=== PATIENT | male | born 1970 | race Caucasian/White ===

== ENCOUNTER 2017-10-23 18:24 | Emergency (ER) | payer BC ==
[2017-10-23] MEDS ORDERED: KETOROLAC 30 MG/ML VIAL IM ONE (18:47)
[2017-10-23] MEDS ORDERED: ORPHENADRINE CITRATE 60MG/2ML VIAL IM ONE (18:47)
--- NOTE | 2017-10-23 18:47 | Emergency Department Record ---
History of Present Illness - General Chief Complaint: Back Pain/Injury Stated Complaint: LOWER BACK PAIN Time Seen by Provider: 10/23/17 18:35 Source: Patient Mode of Arrival: Wheelchair Limitations: No limitations - History of Present Illness Initial Comments: The patient is here due to Low back pain for one day. 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 The pain came on mildly and has slowly worsened. The patient states it feels like his lower back is tightening up. The pain is much worse with any bending, walking, or straightening up. There is no pain radiating down the legs and no leg numbness, weakness, or any bowel or bladder issues. The patient states this is a chronic problem for him and it occurs a couple times a year. He has had to come to the ER in the past for it. MD Complaint: Back pain Onset/Timin -: Days(s) Similar Symptoms Previously: Yes Place: Home Severity scale (1-10): 7 Quality: Aching Consistency: Constant Improves With: None Worsens With: Other Context: Bending Associated Symptoms: Denies other symptoms - Related Data Home Medications Medication Instructions Recorded Confirmed Last Taken Simvastatin [Simvastatin] 20 mg PO DAILY 10/23/17 10/23/17 Unknown Allergies Allergy/AdvReac Type Severity Reaction Status Date / Time No Known Drug Allergies Allergy Unverified 12/03/16 09:50 Travel Screening - Travel/Exposure Within Last 30 Days Have you traveled within the last 30 days?: No Review of Systems Constitutional: Denies: Chills, Fever Eyes: Denies: Eye discharge ENT: Denies: Congestion Respiratory: Denies: Cough, Dyspnea Past Medical History - SOCIAL HISTORY Smoking Status: Current some day smoker Alcohol Use: Occasional Drug Use: None - RESPIRATORY Hx Respiratory Disorders: No - CARDIOVASCULAR Hx Cardio Disorders: No - NEURO Hx Neuro Disorders: No - GI Hx GI Disorders: No - Hx Genitourinary Disorders: No - ENDOCRINE Hx Endocrine Disorders: No - MUSCULOSKELETAL Hx Musculoskeletal Disorders: Yes - PSYCH Hx Psych Problems: Yes Hx Anxiety: Yes Hx Depression: Yes - HEMATOLOGY/ONCOLOGY Hx Hematology/Oncology Disorders: No Family Medical History Any Significant Family History?: No Physical Exam - General General Appearance: Alert, Oriented x3, Cooperative, No acute distress - Head Head exam: Atraumatic, Normocephalic, Normal inspection - Eye Eye exam: Normal appearance, PERRL - Neck Neck exam: Normal inspection, Full ROM. negative: Tenderness - Respiratory Respiratory exam: Normal lung sounds bilaterally. negative: Respiratory distress - Cardiovascular Cardiovascular Exam: Regular rate, Normal rhythm, Normal heart sounds - GI/Abdominal GI/Abdominal exam: Soft, Normal bowel sounds. negative: Tenderness - Extremities Extremities exam: Normal inspection, Full ROM, Normal capillary refill, Other ( Neg SLR bilaterally.). negative: Tenderness - Back Back exam: Reports: Normal inspection, Full ROM. Denies: Muscle spasm, Paraspinal tenderness, Rash noted, Tenderness, Vertebral tenderness - Neurological Neurological exam: Alert, Oriented X3, Reflexes normal. negative: Altered, Motor sensory deficit (The motor and sensory exams are 5/5 and equal bilaterally in all muscle groups.) - Skin Skin exam: negative: Rash Course Vital Signs 10/23/17 18:28 Temperature 98.4 F Pulse Rate 63 Respiratory 20 Rate Blood Pressure 135/58 Pulse Ox 95 - Reevaluation(s) Reevaluation #1: The patient is resting comfortably at this time. He has not received his pain medicines yet and has not gone for xray. His care will be turned over to Dr. Hendrix at 19:00 due to shift change. 10/23/17 18:51 Disposition Forms: Patient Portal Access Quality - Quality Measures Quality Measures: N/A - Blood Pressure Screening View Details: Yes Does Patient Have Any of the Following: No Blood Pressure Classification: Pre-Hypertensive BP Reading Systolic Measurement: 135 Diastolic Measurement: 58 Screening for High Blood Pressure: < Pre-Hypertensive BP, F/U Documented > [ G8950] Pre-Hypertensive Follow-up Interventions: Referral to alternative/primary care provider.
--- NOTE | 2017-10-23 20:06 | Emergency Department Record ---
History of Present Illness - General Chief Complaint: Back Pain/Injury Stated Complaint: LOWER BACK PAIN Time Seen by Provider: 10/23/17 18:35 Source: Patient Limitations: No limitations - History of Present Illness Onset/Timin -: Days(s) Similar Symptoms Previously: Yes Place: Home Severity scale (1-10): 7 Quality: Aching Consistency: Constant Improves With: None Worsens With: Other Context: Bending Associated Symptoms: Denies other symptoms - Related Data Home Medications Medication Instructions Recorded Confirmed Last Taken Simvastatin [Simvastatin] 20 mg PO DAILY 10/23/17 10/23/17 Unknown Previous Rx's Medication Instructions Recorded Cyclobenzaprine HCl [Flexeril] 10 mg PO TID #14 tablet 10/23/17 Hydrocodone/Acetaminophen [[place] 1 each PO Q6HR #7 tablet 10/23/17 5-325 Tablet] Ibuprofen [Motrin 600Mg] 600 mg PO Q6H #20 tablet 10/23/17 Allergies Allergy/AdvReac Type Severity Reaction Status Date / Time No Known Drug Allergies Allergy Unverified 12/03/16 09:50 Travel Screening - Travel/Exposure Within Last 30 Days Have you traveled within the last 30 days?: No Review of Systems Constitutional: Denies: Chills, Fever Eyes: Denies: Eye discharge ENT: Denies: Congestion Respiratory: Denies: Cough, Dyspnea Past Medical History - SOCIAL HISTORY Smoking Status: Current some day smoker Alcohol Use: Occasional Drug Use: None - RESPIRATORY Hx Respiratory Disorders: No - CARDIOVASCULAR Hx Cardio Disorders: No - NEURO Hx Neuro Disorders: No - GI Hx GI Disorders: No - Hx Genitourinary Disorders: No - ENDOCRINE Hx Endocrine Disorders: No - MUSCULOSKELETAL Hx Musculoskeletal Disorders: Yes - PSYCH Hx Psych Problems: Yes Hx Anxiety: Yes Hx Depression: Yes - HEMATOLOGY/ONCOLOGY Hx Hematology/Oncology Disorders: No Family Medical History Any Significant Family History?: No Physical Exam - General Limitations: No limitations Course Vital Signs 10/23/17 10/23/17 18:28 19:35 Temperature 98.4 F 97.6 F Pulse Rate 63 Pulse Rate [ 57 L Pulse Ox Probe] Respiratory 20 20 Rate Blood Pressure 135/58 Blood Pressure 125/75 [Left Arm] Pulse Ox 95 96 - Reevaluation(s) Reevaluation #1: 10/23/17 20:01 pt feels better Disposition Disposition: Discharge Clinical Impression: Lumbar strain Qualifiers: Encounter type: initial encounter Qualified Code(s): S39.012A - Strain of muscle, fascia and tendon of lower back, initial encounter DJD (degenerative joint disease) Qualifiers: Osteoarthritis location: spine Spinal region: lumbar Spinal osteoarthritis complication: without myelopathy or radiculopathy Qualified Code(s): M47.816 - Spondylosis without myelopathy or radiculopathy, lumbar region Disposition: Home, Self-Care Condition: (1) Good Instructions: Low Back Strain (ED), Arthritis (ED) Additional Instructions: follow up with family doctor. return sooner if worse. no lifting more then 5 lbs for 5 days. Prescriptions: Hydrocodone/Acetaminophen [[place] 5-325 Tablet] 1 each PO Q6HR #7 tablet Cyclobenzaprine HCl [Flexeril] 10 mg PO TID #14 tablet Ibuprofen [Motrin 600Mg] 600 mg PO Q6H #20 tablet Forms: Patient Portal Access Quality - Quality Measures Quality Measures: N/A - Blood Pressure Screening Does Patient Have Any of the Following: No Blood Pressure Classification: Pre-Hypertensive BP Reading Systolic Measurement: 135 Diastolic Measurement: 58 Screening for High Blood Pressure: < Pre-Hypertensive BP, F/U Documented > [ G8950] Pre-Hypertensive Follow-up Interventions: Follow-up with rescreen every year.
--- NOTE | 2017-10-25 18:56 | RADIOLOGY REPORT ---
EXAM: LUMBAR SPINE W/OBLIQUES HISTORY: PATIENT HAS LOW BACK PAIN. TECHNIQUE: Five views of the lumbar spine are provided without comparison examinations. FINDINGS: The vertebral body height, contour, AP alignment of the lumbar spine is within normal limits. Moderate to advanced disc space height loss and endplate sclerosis is noted at the T12-L1 disc space level. Prominent anterior vertebral body osteophytes are identified. There is no radiographic evidence of a fracture or dislocation of the lumbar spine. Bilateral pedicles, posterior spinous processes, transverse processes are within normal limits. IMPRESSION: DEGENERATIVE DISC DISEASE OF THE LUMBAR SPINE IS NOTED WITHOUT RADIOGRAPHIC EVIDENCE OF AN ACUTE PROCESS INVOLVING THE LUMBAR SPINE. JOB NUMBER: [id number] MTDD
== END 2017-10-23 20:45 | disposition home or self-care (01) ==
LOC: ER 18:24
DX: S39.012A Strain of muscle, fascia and tendon of lower back, initial encounter (principal); M47.816 Spondylosis without myelopathy or radiculopathy, lumbar region; X50.1XXA Overexertion from prolonged static or awkward postures, initial encounter; Y93.F1 Activity, caregiving, bathing; Y92.002 Bathroom of unspecified non-institutional (private) residence as the place of occurrence of the external cause
CPT/HCPCS: 99283; 96372; 99284; 72110; J1885; J2360

== ENCOUNTER 2019-12-13 13:37 | Emergency (ER) | payer BC ==
[2019-12-13] MEDS ORDERED: 0.9 % SODIUM CHLORIDE 1,000 ML BAG IV ONE ×2 (14:01→15:32)
[2019-12-13] MEDS ORDERED: ONDANSETRON HCL IV 4 MG/2 ML VIAL IVP ONE (14:01)
[2019-12-13] MEDS ORDERED: MORPHINE SULFATE 5 MG/ML VIAL IVP ONE ×2 (14:01→15:00)
--- NOTE | 2019-12-13 14:07 | Emergency Department Record ---
History of Present Illness - General Chief complaint: Vomiting Stated complaint: VOMITING AND ABD PAIN Time Seen by Provider: 12/13/19 13:55 Source: Patient Mode of Arrival: Ambulatory Limitations: No limitations - History of Present Illness Initial comments: 48 yo male presents with left sided abdominal pain, nausea and vomiting. The [place] of the [place] He [place] he [place] home that same day. The pain is lateral to the umbilicus. No rash. The pain is constant at this point. He began to vomit late Thursday or early Thursday. No blood in the vomit. No cough, chest pain or shortness of breath. No blood in the stools. No history of abdominal surgery or colonoscopy. He has not had any appetite since the onset. He urine is dark and "smells". He has had prior similar episodes in the past that usually only last 1-[address] Nathan Minor is his PCP. MD complaint: Abdominal pain, Nausea, Vomiting Onset/Timin -: Days(s) Description of Vomiting: Watery Associated Abdominal Pain: Yes Location: Diffuse Radiation: Other (left lateral abdomen) Severity: Moderate Severity scale (1-10): 8 Quality: Aching Consistency: Constant Improves with: None Worsens with: None Context: Other Associated Symptoms: Denies other symptoms - Related Data Previous Rx's Medication Instructions Recorded Ibuprofen [Motrin 600Mg] 600 mg PO Q6H #20 tablet 10/23/17 Hydrocodone/Acetaminophen [[place] 1 each PO Q6H #8 tablet 12/13/19 5-325 Tablet] Ondansetron [Zofran Odt] 4 mg PO Q8H #15 tab.rapdis 12/13/19 Allergies Allergy/AdvReac Type Severity Reaction Status Date / Time No Known Drug Allergies Allergy Verified 12/13/19 13:43 Travel Screening - Travel/Exposure Within Last 30 Days Have you traveled within the last 30 days?: Yes Location Detail:: [place], [place], [place], [place], - Travel/Exposure Within Last Year Have you traveled outside the [place] 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 Denies: Chills, Fever Eyes: Denies: Eye discharge ENT: Denies: Congestion, Ear pain, Epistaxis, Throat pain Respiratory: Denies: Cough, Dyspnea, Hemoptysis, Wheezes Cardiovascular: Denies: Chest pain, Edema, Syncope Endocrine: Denies: Fatigue, Polydipsia, Polyuria Gastrointestinal: Reports: As per HPI, Abdominal pain, Nausea, Vomiting. Denies: Constipation, Diarrhea, Hematemesis, Hematochezia, Melena Genitourinary: Denies: Dysuria, Frequency, Hematuria Musculoskeletal: Reports: Back pain (chronic). Denies: Arthralgia, Gout, Myalgia Skin: Denies: Bruising, Change in color, Rash Neurological: Denies: Headache, Weakness Psychiatric: Denies: Anxiety Hematological/Lymphatic: Denies: Easy bleeding, Easy bruising Past Medical History - SOCIAL HISTORY Smoking Status: Current some day smoker Alcohol Use: None Drug Use: None - RESPIRATORY Hx Respiratory Disorders: No - CARDIOVASCULAR Hx Cardio Disorders: No - NEURO Hx Neuro Disorders: No - GI Hx GI Disorders: No - Hx Genitourinary Disorders: No - ENDOCRINE Hx Endocrine Disorders: No - MUSCULOSKELETAL Hx Musculoskeletal Disorders: Yes - PSYCH Hx Psych Problems: Yes Hx Anxiety: Yes Hx Depression: Yes - HEMATOLOGY/ONCOLOGY Hx Hematology/Oncology Disorders: No Family Medical History Any Significant Family History?: No Physical Exam - General General Appearance: Alert, Oriented x3, Cooperative, No acute distress Limitations: No limitations - Head Head exam: Atraumatic, Normocephalic, Normal inspection - Eye Eye exam: Normal appearance, PERRL. negative: Conjunctival injection, Scleral icterus - ENT ENT exam: Normal exam, Mucous membranes moist Ear exam: Normal external inspection Nasal Exam: Normal inspection Mouth exam: Normal external inspection - Neck Neck exam: Normal inspection - Respiratory Respiratory exam: Normal lung sounds bilaterally. negative: Accessory muscle use, Decreased breath sounds, Prolonged expiratory, Respiratory distress, Rhonchi, Stridor, Wheezes - Cardiovascular Cardiovascular Exam: Regular rate, Normal rhythm, Normal heart sounds - GI/Abdominal GI/Abdominal exam: Soft, Normal bowel sounds, Hernia (umbilica), Tenderness, Other (Obese but very soft abdomen. Small umbilical soft non tender hernia, Tender left lateral abdomen, no rash, The remaining abdomen is very soft and not tender). negative: Diminished bowel sounds, Distended, Guarding, Mass, Pulsatile mass (limited due to habitus), Rebound, Rigid - Rectal Rectal exam: Deferred - exam: Deferred - Extremities Extremities exam: Normal inspection Image of Full Body: 1 - tenderness, no mass or swelling, no rash, soft abdomen, no rebound or guarding - Back Back exam: Reports: CVA tenderness (L). Denies: CVA tenderness (R) - Neurological Neurological exam: Alert, Oriented X3 - Psychiatric Psychiatric exam: Normal affect, Normal mood - Skin Skin exam: Dry, Intact, Normal color, Warm Course Vital Signs 12/13/19 13:46 Temperature 98.1 F Pulse Rate 80 Respiratory 24 Rate Blood Pressure 163/95 Pulse Ox 97 - Reevaluation(s) Reevaluation #1: 12/13/19 14:37 The labs results were reviewed There are no acute significant abnormalities of the CBC There are no acute significant abnormalities of the CMP The Lipase is normal 12/13/19 15:01 On recheck the patient still has left lateral abdominal pain. He points to the same spot lateral to the umbilicus. 12/13/19 15:[address] scan of the abdomen was reviewed. No acute process visible on the ED The work up to this point has been negative for a cause for his left side abdominal pain He has yet to give a UA. No fever, normal labs, and normal CT scan No vomiting in the ED 12/13/19 16:07 Waiting for UA. Patient aware. 12/13/19 16:43 The Influenza are negative The UA is negative for infection 12/13/19 17:15 I recommend a 12-24 hour recheck in the ED given his negative work up but continued pain We discussed home care and reasons for immediate return to the ED Medical Decision Making - Lab Data Result diagrams: 12/13/19 14:07 12/13/19 14:07 Disposition Disposition: Discharge Clinical Impression: Abdominal pain Qualifiers: Abdominal location: unspecified location Qualified Code(s): R10.9 - Unspecified abdominal pain Disposition: Home, Self-Care Condition: (1) Good Instructions: Acute Nausea and Vomiting (ED), Abdominal Pain (ED) Additional Instructions: Review this ER visit and the tests performed with your family doctor this week Return to the ER in the next 12-24 hours if you are not significantly better Return to the ER for a recheck immediately if worse, vomiting, uncontrolled pain, or any new concerns or questions Take the prescriptions provided as directed Prescriptions: Hydrocodone/Acetaminophen [[place] 5-325 Tablet] 1 each PO Q6H #8 tablet Ondansetron [Zofran Odt] 4 mg PO Q8H #15 tab.rapdis Forms: Patient Portal Access Time of Disposition: 17:21 Quality - Quality Measures Quality Measures: N/A - Blood Pressure Screening Does Patient Have Any of the Following: No Blood Pressure Classification: Hypertensive Reading Systolic Measurement: 163 Diastolic Measurement: 95 Screening for High Blood Pressure: < Pre-Hypertensive BP, F/U Documented > [G8950] Pre-Hypertensive Follow-up Interventions: Referral to alternative/primary care provider.
[2019-12-13 14:16] LABS: HEMATOCRIT 48.5 % (42.0-52.0); HEMOGLOBIN 16.9 gm/dl (14.0-18.0); MEAN CELL VOLUME 83.5 fl (81-97); MEAN CORPUSCULAR HGB CONC 34.8 g/dl (32-36); MEAN PLATELET VOLUME 11.4 fl (7.4-10.4); PLATELET COUNT 234 K/uL (130-400); RED BLOOD COUNT 5.81 M/uL (4.40-5.70); RED CELL DISTRIBUTION WIDTH 12.7 % (11.5-14.5); WHITE BLOOD COUNT W/O DIFF 9.5 K/uL (4.2-12.2)
[2019-12-13 14:26] LABS: BLOOD UREA NITROGEN 17 mg/dL (6-20); CREATININE 0.9 mg/dL (0.7-1.2); EST GLOMERULAR FILTRATION RATE > 60 mL/min
[2019-12-13 14:27] LABS: LIPASE 50 U/L (13-60); TOTAL PROTEIN 7.9 g/dL (6.6-8.7)
[2019-12-13 14:29] LABS: GLUCOSE,RANDOM 137 mg/dL (74-109)
[2019-12-13 14:32] LABS: ALB/GLOB RATIO 1.6 (1.1-1.8); ALBUMIN 4.9 g/dL (4.0-5.0); ALKALINE PHOSPHATASE 78 U/L (40-129); ALT/SGPT 30 U/L (<41); AST/SGOT 19 U/L (10.0-50.0)
[2019-12-13 14:49] LABS: ABSOLUTE NEUTROPHIL COUNT 5.81
--- NOTE | 2019-12-13 15:31 | CT SCAN REPORT ---
EXAMINATION: CT Abdomen and Pelvis with Contrast EXAM DATE: 12/13/2019 3:00 PM TECHNIQUE: Spiral CT images were obtained from the lung bases to the ischial tuberosities after inje ction of intravenous contrast. Coronal and sagittal 2-D reconstructions were made from source images . IV Contrast: The type and amount of contrast are recorded in the medical record. INDICATION: left sided abdominal pain LLQ PAIN W/ VOMITING X 4 DAYS. COMPARISON: None. FINDINGS: Abdomen: The liver, spleen, pancreas, adrenals, and kidneys are normal. There are mildly prominent retroperito kenny lymph nodes, with no definite pathologically enlarged nodes. No free fluid or free air. Subopti mal evaluation of bowel due to nondistention and lack of oral contrast. No bowel dilation. Pelvis: The pelvic organs are unremarkable. No free fluid or free air. No inflammatory change. The appendix i s normal. IMPRESSION: 1. Negative. Dictated by: Dalton Calixto MD on 12/13/2019 3:25 PM. .
[2019-12-13 16:19] LABS: INFLUENZA A NEGATIVE (NEGATIVE); INFLUENZA B NEGATIVE (NEGATIVE)
[2019-12-13] MEDS ORDERED: MAGNESIUM HYDROXIDE/AL HYDROX 30 ML, LIDOCAINE VISC 2% 15ML 15 ML PO ONE ×2 (16:22)
[2019-12-13 16:40] LABS: URINE APPEARANCE CLEAR; URINE BILIRUBIN NEGATIVE (NEGATIVE); URINE BLOOD NEGATIVE (NEGATIVE); URINE COLOR YELLOW; URINE GLUCOSE (UA) NEGATIVE (NEGATIVE); URINE KETONE NEGATIVE (NEGATIVE); URINE LEUKOCYTE ESTERASE NEGATIVE (NEGATIVE); URINE NITRITE NEGATIVE (NEGATIVE); URINE PROTEIN TRACE (NEGATIVE)
== END 2019-12-13 18:06 | disposition home or self-care (01) ==
LOC: ER 13:37
DX: R10.33 Periumbilical pain (principal); R11.2 Nausea with vomiting, unspecified; F17.210 Nicotine dependence, cigarettes, uncomplicated
CPT/HCPCS: 99284 ×2; 96376; 96374; 96375; 83690; 80053; 81003; 87400; 85027; 74177; Q9967; J2405; J7030

== ENCOUNTER 2019-12-15 10:57 | Observation (INO) | payer BC ==
[2019-12-15] MEDS ORDERED: 0.9 % SODIUM CHLORIDE 1,000 ML BAG IV ONE (11:13)
[2019-12-15] MEDS ORDERED: ONDANSETRON HCL IV 4 MG/2 ML VIAL IV ONE (11:13)
[2019-12-15] MEDS ORDERED: ACETAMINOPHEN 1,000 MG/100 ML BTL IVPB ONE (11:14)
--- NOTE | 2019-12-15 11:19 | Emergency Department Record ---
History of Present Illness - General Chief complaint: Nausea, Vomiting, Diarrhea Stated complaint: NAUSEA/WEAKNESS Time Seen by Provider: 12/15/19 11:09 Source: Patient Mode of Arrival: Ambulatory Limitations: No limitations - History of Present Illness Initial comments: The patient is here due to a hx of intermittent nausea with vomiting and abdominal cramping over the last 5 days. He got worse 2 days ago and was here in the ER for it. At that time he did receive IVF and did have a normal workup including and abdominal CT with IV contrast. The patient was better yesterday and then today developed a return of the nausea with vomiting and abdominal cramping. He also did have some palpitations today and a MONTE but that is improving. MD complaint: Nausea, Vomiting Onset/Timin -: Days(s) Description of Vomiting: Watery Associated Abdominal Pain: Yes Location: Diffuse Severity: Moderate Severity scale (1-10): 7 Quality: Aching, Cramping - Related Data Previous Rx's Medication Instructions Recorded Ondansetron [Zofran Odt] 4 mg PO Q8H #15 tab.rapdis 12/13/19 Allergies Allergy/AdvReac Type Severity Reaction Status Date / Time No Known Drug Allergies Allergy Verified 12/15/19 11:08 Travel Screening - Travel/Exposure Within Last 30 Days Have you traveled within the last 30 days?: No - Travel/Exposure Within Last Year Have you traveled outside the [place] in the last year?: No - Additonal Travel Details Have you been exposed to anyone with a communicable illness?: No - Travel Symptoms Symptom Screening: None Review of Systems Constitutional: Reports: Malaise. Denies: Chills, Fever Eyes: Denies: Eye discharge ENT: Denies: Congestion Respiratory: Denies: Cough, Dyspnea Cardiovascular: Reports: Palpitations. Denies: Chest pain Endocrine: Reports: Fatigue Gastrointestinal: Reports: Nausea, Vomiting Genitourinary: Denies: Dysuria Musculoskeletal: Denies: Arthralgia Skin: Denies: Bruising Past Medical History - SOCIAL HISTORY Smoking Status: Current some day smoker Alcohol Use: None Drug Use: None - RESPIRATORY Hx Respiratory Disorders: No - CARDIOVASCULAR Hx Cardio Disorders: No - NEURO Hx Neuro Disorders: No - GI Hx GI Disorders: No - Hx Genitourinary Disorders: No - ENDOCRINE Hx Endocrine Disorders: No - MUSCULOSKELETAL Hx Musculoskeletal Disorders: Yes Comment:: sciatic - PSYCH Hx Psych Problems: Yes Hx Anxiety: Yes Hx Depression: Yes - HEMATOLOGY/ONCOLOGY Hx Hematology/Oncology Disorders: No Family Medical History Any Significant Family History?: Yes Physical Exam - General General Appearance: Alert, Oriented x3, Cooperative, No acute distress - Head Head exam: Atraumatic, Normocephalic, Normal inspection - Eye Eye exam: Normal appearance, PERRL - ENT Throat exam: Normal inspection. negative: Tonsillar erythema, Tonsillar exudate - Neck Neck exam: Normal inspection, Full ROM. negative: Tenderness - Respiratory Respiratory exam: Normal lung sounds bilaterally. negative: Respiratory distress - Cardiovascular Cardiovascular Exam: Regular rate, Normal rhythm, Normal heart sounds - GI/Abdominal GI/Abdominal exam: Soft, Normal bowel sounds, Tenderness (There is mild L sided abdominal tenderness.). negative: Distended, Guarding, Rebound - Extremities Extremities exam: Normal inspection, Full ROM, Normal capillary refill. negative: Tenderness - Back Back exam: Reports: Normal inspection - Neurological Neurological exam: Alert, Normal gait, Oriented X3, Other (Neg Drift and Rhomberg exams.). negative: Abnormal gait, Altered, Motor sensory deficit - Psychiatric Psychiatric exam: negative: Anxious - Skin Skin exam: Pallor (mild.) Course Vital Signs 12/15/19 11:01 Temperature 98.1 F Pulse Rate 57 L Respiratory 18 Rate Blood Pressure 181/95 Pulse Ox 100 - Reevaluation(s) Reevaluation #1: The patient is still nauseated and vomiting. He denies any MONTE, neck pain, CP or SOB. The patient is having mild abdominal pain which he describes as an aching nauseated feeling. I did discuss with him that his tests are all normal at this time. 12/15/19 12:19 Reevaluation #2: The patient is still quite nauseated and intermittently vomiting. He denies any MONTE, CP, SOB or AP but is cramping all over at times. Due to the persistent vomiting I did recommend a short stay admission and the patient does agree. I also did discuss the case with Dr. Kapadia and he does accept the patient. 12/15/19 13:59 Medical Decision Making - Data Complexity MDM Data: Labs Ordered and/or Reviewed, EKG Ordered and/or Reviewed - Lab Data Result diagrams: 12/15/19 11:15 12/15/19 11:15 - EKG Data -: EKG Interpreted by Me EKG: No Acute Changes (Flipped T wave Lead III only.), Normal EKG Disposition Disposition: Admit Clinical Impression: Nausea and vomiting Qualifiers: Vomiting type: unspecified Vomiting Intractability: unspecified Qualified Code(s): R11.2 - Nausea with vomiting, unspecified Disposition: Still a Patient at [facility] Decision to Admit: Admit from ER Decision to Admit Date: 12/15/19 Decision to Admit Time: 14:00 Accepting Physician: Kang Time Discussed w/Accepting Physician: 14:01 Condition: (2) Stable Instructions: Acute Nausea and Vomiting (ED) Forms: Patient Portal Access Time of Disposition: 14:00 Quality - Quality Measures Quality Measures: N/A - Blood Pressure Screening View Details: Yes Does Patient Have Any of the Following: No Blood Pressure Classification: Hypertensive Reading Systolic Measurement: 181 Diastolic Measurement: 95 Screening for High Blood Pressure: < First Hypertensive BP, F/U Documented > [G8950] First Hypertensive Follow-up Interventions: Referral to alternative/primary care provider.
[2019-12-15 11:26] LABS: ABSOLUTE NEUTROPHIL COUNT 6.93; BASO % 0.3 % (0-6); EOS % 0.1 % (0-6); GRAN % 78.5 % (47-80); HEMATOCRIT 48.2 % (42.0-52.0); LYMPH % 14.8 % (16-45); MEAN CELL VOLUME 82.8 fl (81-97); MEAN CORPUSCULAR HEMOGLOBIN 29.2 pg (27-33); MEAN CORPUSCULAR HGB CONC 35.3 g/dl (32-36); MEAN PLATELET VOLUME 11.3 fl (7.4-10.4); MONO % 6.3 % (0-9); PLATELET COUNT 243 K/uL (130-400); RED BLOOD COUNT 5.82 M/uL (4.40-5.70); RED CELL DISTRIBUTION WIDTH 12.4 % (11.5-14.5); WHITE BLOOD COUNT W/O DIFF 8.8 K/uL (4.2-12.2)
--- NOTE | 2019-12-15 11:26 | Emergency Department Record ---
History of Present Illness - General Chief complaint: Nausea, Vomiting, Diarrhea Stated complaint: NAUSEA/WEAKNESS Time Seen by Provider: 12/15/19 11:09 Source: Patient Mode of Arrival: Ambulatory Limitations: No limitations - History of Present Illness MD complaint: Nausea, Vomiting Onset/Timin -: Days(s) Description of Vomiting: Watery Associated Abdominal Pain: Yes Location: Diffuse Severity: Moderate Severity scale (1-10): 7 Quality: Aching, Cramping - Related Data Previous Rx's Medication Instructions Recorded Ondansetron [Zofran Odt] 4 mg PO Q8H #15 tab.rapdis 12/13/19 Allergies Allergy/AdvReac Type Severity Reaction Status Date / Time No Known Drug Allergies Allergy Verified 12/15/19 11:08 Travel Screening - Travel/Exposure Within Last 30 Days Have you traveled within the last 30 days?: No - Travel/Exposure Within Last Year Have you traveled outside the [place] in the last year?: No - Additonal Travel Details Have you been exposed to anyone with a communicable illness?: No - Travel Symptoms Symptom Screening: None Past Medical History - SOCIAL HISTORY Smoking Status: Current some day smoker Alcohol Use: None Drug Use: None - RESPIRATORY Hx Respiratory Disorders: No - CARDIOVASCULAR Hx Cardio Disorders: No - NEURO Hx Neuro Disorders: No - GI Hx GI Disorders: No - Hx Genitourinary Disorders: No - ENDOCRINE Hx Endocrine Disorders: No - MUSCULOSKELETAL Hx Musculoskeletal Disorders: Yes Comment:: sciatic - PSYCH Hx Psych Problems: Yes Hx Anxiety: Yes Hx Depression: Yes - HEMATOLOGY/ONCOLOGY Hx Hematology/Oncology Disorders: No Family Medical History Any Significant Family History?: Yes Course Vital Signs 12/15/19 11:01 Temperature 98.1 F Pulse Rate 57 L Respiratory 18 Rate Blood Pressure 181/95 Pulse Ox 100 Medical Decision Making - Lab Data Result diagrams: 12/15/19 11:15 12/15/19 11:15 Disposition Forms: Patient Portal Access Quality - Quality Measures Quality Measures: N/A - Blood Pressure Screening View Details: Yes Does Patient Have Any of the Following: Active Dx of HTN Blood Pressure Classification: Hypertensive Reading Systolic Measurement: 181 Diastolic Measurement: 95 Screening for High Blood Pressure: Patient Exclusion, Hx of HTN [[id number]]
[2019-12-15 11:38] LABS: BLOOD UREA NITROGEN 14 mg/dL (6-20); CREATININE 0.9 mg/dL (0.7-1.2); EST GLOMERULAR FILTRATION RATE > 60 mL/min
[2019-12-15 11:39] LABS: LIPASE 65 U/L (13-60)
[2019-12-15 11:40] LABS: GLUCOSE,RANDOM 127 mg/dL (74-109)
[2019-12-15 11:43] LABS: ALBUMIN 4.8 g/dL (4.0-5.0); ALKALINE PHOSPHATASE 80 U/L (40-129); ALT/SGPT 32 U/L (<41); AST/SGOT 22 U/L (10.0-50.0)
[2019-12-15 11:44] LABS: BILIRUBIN,DIRECT < 0.2 mg/dL (0-0.3)
[2019-12-15] MEDS ORDERED: PROMETHAZINE HCL 12.5 MG in 0.9 % SODIUM CHLORIDE 100ML 100 ML IVPB ONE (12:05)
[2019-12-15] MEDS ORDERED: PANTOPRAZOLE SODIUM IV 40 MG VIAL IVP ONE (12:06)
[2019-12-15 12:59] LABS: URINE APPEARANCE CLOUDY; URINE BILIRUBIN NEGATIVE (NEGATIVE); URINE BLOOD NEGATIVE (NEGATIVE); URINE COLOR YELLOW; URINE GLUCOSE (UA) NEGATIVE (NEGATIVE); URINE KETONE 15 mg/dL (NEGATIVE); URINE LEUKOCYTE ESTERASE NEGATIVE (NEGATIVE); URINE NITRITE NEGATIVE (NEGATIVE); URINE PROTEIN NEGATIVE (NEGATIVE)
[2019-12-15] MEDS ORDERED: PROMETHAZINE HCL 12.5 MG in 0.9 % SODIUM CHLORIDE 100ML 100 ML IVPB PRN (15:21)
[2019-12-15] MEDS ORDERED: ONDANSETRON HCL IV 4 MG/2 ML VIAL IVP PRN (15:21)
[2019-12-15] MEDS ORDERED: 0.9 % SODIUM CHLORIDE 1000ML 1,000 ML IV ONE (15:21)
[2019-12-15] MEDS ORDERED: ACETAMINOPHEN 1,000 MG/100 ML BTL IVPB PRN (15:21)
[2019-12-15] MEDS ORDERED: HYDRALAZINE 20MG/ML VIAL IV PRN ×2 (15:23→15:25)
--- NOTE | 2019-12-15 15:36 | History & Physical ---
History of Present Illness - Date of Service Date of Service for History & Physical: 12/15/19 - History of Present Illness Admitting Diagnosis: 1. Intractable Nausea and Vomiting. History of Present Illness: 48 y/o male with 4 days history of nausea, vomiting and abdominal pain. The patient came into the ED yesterday and had 2 liters of normal saline and Zofran which resolved symptoms and he went home feeling better. He was able to eat soft foods and liquids but then symptoms returned this morning around 5 am. The patient's ED workup was unremarkable with normal CBC w/ diff, CMP and UA is negative. The patient will be admitted to observation for IV fluid and management of intractable nausea and vomiting. PCP: Dr. Minor Travel Screening - Travel/Exposure Within Last 30 Days Have you traveled within the last 30 days?: No - Travel/Exposure Within Last Year Have you traveled outside the [place] in the last year?: No - Additonal Travel Details Have you been exposed to anyone with a communicable illness?: No - Travel Symptoms Symptom Screening: None Review of Systems Constitutional: Reports: Malaise. Denies: Chills, Fever Eyes: Denies: Eye discharge ENT: Denies: Congestion Respiratory: Denies: Cough, Dyspnea Cardiovascular: Reports: Palpitations. Denies: Chest pain Endocrine: Reports: Fatigue Gastrointestinal: Reports: Nausea, Vomiting Genitourinary: Denies: Dysuria Musculoskeletal: Denies: Arthralgia Skin: Denies: Bruising Past Medical History - SOCIAL HISTORY Smoking Status: Current some day smoker Alcohol Use: None Drug Use: None - RESPIRATORY Hx Respiratory Disorders: No - CARDIOVASCULAR Hx Cardio Disorders: No - NEURO Hx Neuro Disorders: No - GI Hx GI Disorders: No - Hx Genitourinary Disorders: No - ENDOCRINE Hx Endocrine Disorders: No - MUSCULOSKELETAL Hx Musculoskeletal Disorders: Yes Comment:: sciatic - PSYCH Hx Psych Problems: Yes Hx Anxiety: Yes Hx Depression: Yes - HEMATOLOGY/ONCOLOGY Hx Hematology/Oncology Disorders: No Family Medical History Any Significant Family History?: Yes H&P Meds/Allergies - Allergies Allergies: Allergies Allergy/AdvReac Type Severity Reaction Status Date / Time No Known Drug Allergies Allergy Verified 12/15/19 11:08 - Home Medications Previous Rx's Medication Instructions Recorded Ondansetron [Zofran Odt] 4 mg PO Q8H #15 tab.rapdis 12/13/19 - Active Medications Active Medications: Current Medications Hydralazine HCl (Apresoline) 10 mg IV NOW PRN PRN Reason: BLOOD PRESSURE Hydralazine HCl (Apresoline) 10 mg IV Q4H PRN PRN Reason: BLOOD PRESSURE Sodium Chloride () 1,000 mls @ 100 mls/hr IV .Q10H ONE Stop: 12/16/19 01:20 Promethazine HCl 12.5 mg/ (Sodium Chloride) 100.5 mls @ 200 mls/hr IVPB Q6H PRN PRN Reason: NAUSEA Acetaminophen (Ofirmev) 1,000 mg in 100 mls @ 400 mls/hr IVPB Q6H KUMAR Ondansetron HCl (Zofran) 4 mg IVP Q4H PRN PRN Reason: NAUSEA Pantoprazole Sodium (Protonix Iv) 40 mg IV DAILY KUMAR Physical Exam - Vital Signs Vital Signs: Vital Signs - Last 24 Hrs Temp Pulse Pulse Resp BP BP Pulse Ox 12/15/19 13:26 98.1 F 54 L 20 169/81 98 12/15/19 11:01 98.1 F 57 L 18 181/95 100 - General General Appearance: Alert, Oriented x3, Cooperative, No acute distress Limitations: No limitations - Head Head exam: Atraumatic, Normocephalic, Normal inspection - Eye Eye exam: Normal appearance, PERRL - ENT Throat exam: Normal inspection. negative: Tonsillar erythema, Tonsillar exudate - Neck Neck exam: Normal inspection, Full ROM. negative: Tenderness - Respiratory Respiratory exam: Normal lung sounds bilaterally. negative: Respiratory distress - Cardiovascular Cardiovascular Exam: Regular rate, Normal rhythm, Normal heart sounds Peripheral Pulses: 3+: Radial (R), Radial (L), Dorsalis Pedis (R), Dorsalis Pedis (L) - GI/Abdominal GI/Abdominal exam: Soft, Normal bowel sounds, Tenderness (There is mild L sided abdominal tenderness.). negative: Distended, Guarding, Rebound - Extremities Extremities exam: Normal inspection, Full ROM, Normal capillary refill. negative: Tenderness - Back Back exam: Reports: Normal inspection - Neurological Neurological exam: Alert, Normal gait, Oriented X3, Other (Neg Drift and Rhomberg exams.). negative: Abnormal gait, Altered, Motor sensory deficit - Psychiatric Psychiatric exam: negative: Anxious - Skin Skin exam: Pallor (mild.) Results - Labs Result Diagrams: 12/15/19 11:15 12/15/19 11:15 Labs Last 24 Hours: Laboratory Results - last 24 hr 12/15/19 12/15/19 12/15/19 11:15 11:15 11:15 WBC 8.8 RBC 5.82 H Hgb 17.0 Hct 48.2 MCV 82.8 MCH 29.2 MCHC 35.3 RDW 12.4 Plt Count 243 MPV 11.3 H Gran % 78.5 Lymphocytes % 14.8 L Monocytes % 6.3 Eosinophils % 0.1 Basophils % 0.3 Absolute Neutrophils 6.93 Sodium 142 Potassium 3.7 Chloride 101 Carbon Dioxide 27.0 Anion Gap 14.0 BUN 14 Creatinine 0.9 Estimated GFR > 60 Random Glucose 127 H Lactic Acid 1.5 Calcium 9.7 Total Bilirubin 0.90 Direct Bilirubin < 0.2 AST 22 ALT 32 Alkaline Phosphatase 80 Troponin T Total Protein 8.0 Albumin 4.8 Lipase 65 H Urine Color Urine Appearance Urine pH Ur Specific [place] Urine Protein Urine Glucose (UA) Urine Ketones Urine Blood Urine Nitrite Urine Bilirubin Urine Urobilinogen Ur Leukocyte Esterase 12/15/19 12/15/19 11:15 12:53 WBC RBC Hgb Hct MCV MCH MCHC RDW Plt Count MPV Gran % Lymphocytes % Monocytes % Eosinophils % Basophils % Absolute Neutrophils Sodium Potassium Chloride Carbon Dioxide Anion Gap BUN Creatinine Estimated GFR Random Glucose Lactic Acid Calcium Total Bilirubin Direct Bilirubin AST ALT Alkaline Phosphatase Troponin T < 0.010 Total Protein Albumin Lipase Urine Color Yellow Urine Appearance Cloudy Urine pH 7.[address] [place] 1.015 Urine Protein Negative Urine Glucose (UA) Negative Urine Ketones 15 mg/dl H Urine Blood Negative Urine Nitrite Negative Urine Bilirubin Negative Urine Urobilinogen 1.0 Ur Leukocyte Esterase Negative VTE H&P Assessment - Risk for VTE Risk for VTE: No Risk Level: Very Low Risk Assessment Date: 12/15/19 Risk Assessment Time: 15:38 VTE Orders Placed or Will Be Placed: No VTE Reason for No Prophylaxis: Not Indicated Plan - Detailed Diagnosis and Plan (1) Nausea and vomiting Current Visit: Yes Status: Acute Qualifiers: Vomiting type: unspecified Vomiting Intractability: unspecified Qualified Code(s): R11.2 - Nausea with vomiting, unspecified Base Code: R11.2 - NAUSEA WITH VOMITING, UNSPECIFIED Comment: 12/15/19: - Intractable nausea/vomiting x 4 days. - CBC w/diff, CMP within normal limits. EKG - NSR - IVF 0.9% Nacl 0.9% @ 100mL/hr, NPO and advance to clear liquids as tolerated. - Zofran 4mg Q4H PRN, Phenegren 10mg Q6h PRN, Protonix 40mg IV QD. (2) Abdominal pain Current Visit: No Status: Acute Qualifiers: Abdominal location: unspecified location Qualified Code(s): R10.9 - Un specified abdominal pain Base Code: R10.9 - UNSPECIFIED ABDOMINAL PAIN Comment: 12/15/19: - Pain 4/10 on examination. - Acetaminophen 1000mg Q6H PRN (3) Hypertension Current Visit: Yes Status: Acute Base Code: I10 - ESSENTIAL (PRIMARY) HYPERTENSION Comment: 12/15/19: - No previous hx of HTN - Hydralazine 10mg Q4H with paramters for administration if SBP >160. (4) Full code status Current Visit: Yes Status: Acute Base Code: Z78.9 - OTHER SPECIFIED HEALTH STATUS Comment: 12/15/19: - Full code status.
[2019-12-15] MEDS ORDERED: ASPIRIN 81 MG CHEWABLE TABLET PO ONE (19:40)
[2019-12-15] MEDS ORDERED: MORPHINE SULFATE 5 MG/ML VIAL IVP ONE (20:04)
[2019-12-16 06:34] LABS: ABSOLUTE NEUTROPHIL COUNT 9.28; BASO % 0.2 % (0-6); GRAN % 75.4 % (47-80); HEMATOCRIT 45.7 % (42.0-52.0); HEMOGLOBIN 16.6 gm/dl (14.0-18.0); LYMPH % 16.4 % (16-45); MEAN CELL VOLUME 80.7 fl (81-97); MEAN CORPUSCULAR HEMOGLOBIN 29.3 pg (27-33); MEAN CORPUSCULAR HGB CONC 36.3 g/dl (32-36); MEAN PLATELET VOLUME 11.4 fl (7.4-10.4); PLATELET COUNT 270 K/uL (130-400); RED BLOOD COUNT 5.66 M/uL (4.40-5.70); RED CELL DISTRIBUTION WIDTH 12.2 % (11.5-14.5); WHITE BLOOD COUNT W/O DIFF 12.3 K/uL (4.2-12.2)
[2019-12-16 07:05] LABS: ALB/GLOB RATIO 1.6 (1.1-1.8); ALBUMIN 4.4 g/dL (4.0-5.0); ALKALINE PHOSPHATASE 69 U/L (40-129); ALT/SGPT 22 U/L (<41); AST/SGOT 14 U/L (10.0-50.0); BLOOD UREA NITROGEN 11 mg/dL (6-20); CREATININE 0.8 mg/dL (0.7-1.2); EST GLOMERULAR FILTRATION RATE > 60 mL/min; GLUCOSE,RANDOM 115 mg/dL (74-109); LIPASE 86 U/L (13-60); TOTAL PROTEIN 7.2 g/dL (6.6-8.7)
[2019-12-16] MEDS ORDERED: IBUPROFEN 200 MG TABLET PO ONE (09:59)
[2019-12-16] MEDS ORDERED: PANTOPRAZOLE SODIUM IV 40 MG VIAL IV SCH (10:00)
[2019-12-16] MEDS ORDERED: IBUPROFEN 400 MG TABLET PO PRN (10:05)
--- NOTE | 2019-12-16 13:45 | Discharge Summary ---
Providers Discharge Summary Date: 12/16/19 Date of admission: 12/15/19 14:35 Attending physician: MIGUEL MINOR Primary care physician: TAMIR HU D.O. Physical Exam - Vital Signs Vital Signs: Vital Signs - Last 24 Hrs Temp Pulse Pulse Resp BP BP Pulse Ox 12/16/19 12:20 98.6 F 159/89 12/16/19 09:00 98.6 F 62 62 18 159/89 97 12/15/19 21:21 99.4 F 73 18 156/87 98 12/15/19 20:00 71 20 12/15/19 16:40 63 164/75 12/15/19 15:10 97.6 F 58 L 17 196/91 95 - General General Appearance: Alert, Oriented x3, Cooperative, No acute distress Limitations: No limitations - Head Head exam: Atraumatic, Normocephalic, Normal inspection - Eye Eye exam: Normal appearance, PERRL - ENT Throat exam: Normal inspection. negative: Tonsillar erythema, Tonsillar exudate - Neck Neck exam: Normal inspection, Full ROM. negative: Tenderness - Respiratory Respiratory exam: Normal lung sounds bilaterally. negative: Respiratory distress - Cardiovascular Cardiovascular Exam: Regular rate, Normal rhythm, Normal heart sounds Peripheral Pulses: 3+: Radial (R), Radial (L), Dorsalis Pedis (R), Dorsalis Pedis (L) - GI/Abdominal GI/Abdominal exam: Soft, Normal bowel sounds, Tenderness (There is mild L sided abdominal tenderness.). negative: Distended, Guarding, Rebound - Extremities Extremities exam: Normal inspection, Full ROM, Normal capillary refill. negative: Tenderness - Back Back exam: Reports: Normal inspection - Neurological Neurological exam: Alert, Normal gait, Oriented X3, Other (Neg Drift and Rhomberg exams.). negative: Abnormal gait, Altered, Motor sensory deficit - Psychiatric Psychiatric exam: negative: Anxious - Skin Skin exam: Pallor (mild.) Hospitalization - Hospitalization Admission Diagnosis: 1. Intractable Nausea and Vomiting. - Problem List/Discharge Diagnosis (1) Nausea and vomiting Current Visit: Yes Status: Acute Discharge Diagnosis: Vomiting type: unspecified Vomiting Intractability: unspecified Qualified Code(s): R11.2 - Nausea with vomiting, unspecified Base Code: R11.2 - NAUSEA WITH VOMITING, UNSPECIFIED Comment: 12/16/19: - Intractable nausea/vomiting x 4 days. Resolved - CBC w/diff, CMP within normal limits. EKG - NSR - IVF 0.9% Nacl 0.9% @ 100mL/hr, NPO and advance to clear liquids as tolerated. - Zofran 4mg Q4H PRN, Phenegren 10mg Q6h PRN, Protonix 40mg IV QD. (2) Abdominal pain Current Visit: No Status: Acute Discharge Diagnosis: Abdominal location: unspecified location Qualified Code(s): R10.9 - Unspecified abdominal pain Base Code: R10.9 - UNSPECIFIED ABDOMINAL PAIN Comment: 12/16/19: - Pain 4/10 on examination. Resolved - Acetaminophen 1000mg Q6H PRN (3) Hypertension Current Visit: Yes Status: Acute Base Code: I10 - ESSENTIAL (PRIMARY) HYPERTENSION Comment: 12/16/19: - No previous hx of HTN - Hydralazine 10mg Q4H with paramters for administration if SBP >160. - Follow up with PCP regarding elevation in BP andto start BP meds if needed. (4) Chest pain Current Visit: Yes Status: Acute Base Code: R07.9 - CHEST PAIN, UNSPECIFIED Comment: 12/16/19: - Complaint of chest pain last night which had now resolved. This was likely GI related or MSK. EKG - NSR, no acute findings. Trops neg x 1. - Given morphine 0.5mg x 1 and symptoms subsided. - No previous hx cad. Only risk factor is HLD (5) Full code status Current Visit: Yes Status: Acute Base Code: Z78.9 - OTHER SPECIFIED HEALTH STATUS Comment: 12/16/19: - Full code status. - Hospitalization Course Hospital Course: 48 y/o male with 4 days history of nausea, vomiting and abdominal pain. The patient came into the ED yesterday and had 2 liters of normal saline and Zofran which resolved symptoms and he went home feeling better. He was able to eat soft foods and liquids but then symptoms returned this morning around 5 am. The patient's ED workup was unremarkable with normal CBC w/ diff, CMP and UA is negative. The patient will be admitted to observation for IV fluid and management of intractable nausea and vomiting. 12/16/19: The patient has had remarkable improvement with IV Zofran, Phenegren and bowel rest over the past 24 hours. He has been able to tolerate clear liquids at breakfast time this morning and a full lunch without symptoms. Last evening there was report of chest discomfort and EKG did not show any acute ST-T changes and Troponin were negative x 1. His symptoms resolved with morphine 0.5mg and he has no complaint of chest pain this morning. PCP: Dr. Hu Procedures: Cardiology Procedures 12/15/19 11:13 EKG NOW 12/15/19 19:39 EKG NOW Abnormal Labs: Abnormal Lab Results 12/15/19 12/15/19 12/15/19 Range/Units 11:15 11:15 12:53 WBC (4.2-12.2) K/uL RBC 5.82 H (4.40-5.70) M/uL MCV (81-97) fl MCHC (32-36) g/dl MPV 11.3 H (7.4-10.4) fl Lymphocytes % 14.8 L (16-45) % Random Glucose 127 H (74-109) mg/dL Lipase 65 H (13-60) U/L Urine Ketones 15 mg/dl H (NEGATIVE) 12/16/19 12/16/19 Range/Units 06:19 06:19 WBC 12.3 H (4.2-12.2) K/uL RBC (4.40-5.70) M/uL MCV 80.7 L (81-97) fl MCHC 36.3 H (32-36) g/dl MPV 11.4 H (7.4-10.4) fl Lymphocytes % (16-45) % Random Glucose 115 H (74-109) mg/dL Lipase 86 H (13-60) U/L Urine Ketones (NEGATIVE) Condition at Discharge: (2) Stable Discharge Medications - Discharge Medications Home Medications: Ambulatory Orders Simvastatin 20 mg PO DAILY 10/23/17 [Last Taken 1 Day Ago ~12/14/19] Ondansetron [Zofran Odt] 4 mg PO Q8H #15 tab.rapdis 12/13/19 [Last Taken 1 Day Ago ~12/14/19] Discharge Plan - Discharge Instructions Diet at Discharge: Regular Diet Instructions: Acute Nausea and Vomiting (ED) Quality Measures - Quality Measures Quality Measures: Documentation of Current Medications in Medical Record, Screening for High Blood Pressure and F/U Documented - Current Medications Quality Measure: Measure #130: Documentation of Current Medications Documentation of Current Medications: <Current Medications Documented/Reviewed> [G8427] - Blood Pressure Screening Quality Measure: Screening for High Blood Pressure and Follow-Up Documented Does Patient Have Any of the Following: No Blood Pressure Classification: Pre-Hypertensive BP Reading Systolic Measurement: 159 Diastolic Measurement: 89 Screening for High Blood Pressure: < Pre-Hypertensive BP, F/U Documented > [G8950] Pre-Hypertensive Follow-up Interventions: Follow-up with rescreen every year. - Elder Abuse Suspicion Index EASI Reference Information: Patrick GREENE, Vanessa C, Emre D, Yuniel Carmichael.Development and validation of a tool to assist physicians identification of elder abuse: The Elder Abuse Suspicion Index (EASI ). Journal of Elder Abuse and Neglect, 2008; 20 (3): 276-300.
== END 2019-12-16 14:43 | disposition home or self-care (01) ==
LOC: ER 10:57 → MEDSURG 14:35 → UNDODISOB 17:45
PROVIDERS: ADMIT Internal Medicine; ATTEND Internal Medicine
DX: R11.2 Nausea with vomiting, unspecified (principal); R10.9 Unspecified abdominal pain; R07.9 Chest pain, unspecified; R53.1 Weakness; R00.2 Palpitations; R51 Headache; I10 Essential (primary) hypertension; M54.30 Sciatica, unspecified side; F17.210 Nicotine dependence, cigarettes, uncomplicated
CPT/HCPCS: 80048; 80053; 80076; 81003; 83605; 83690; 84484; 85025; 93005; 93010; 96365; 96366; 96375; 99217; 99220; 99285; C9113; J2405; J2550; J7030